=== PATIENT | male | born 1975 ===

== ENCOUNTER 2021-04-23 13:02 | Emergency (ER) | payer SELFPAY ==
--- NOTE | 2021-04-23 13:31 | PC.NURSE ---
1327-pt noted to be ambulating out of ED with slow gait. No conversation with pt.
== END 2021-04-24 03:26 | disposition left against medical advice (07) ==
LOC: ANHED 13:35
DX: Z53.21 Procedure and treatment not carried out due to patient leaving prior to being seen by health care provider (principal)
CPT/HCPCS: 99199